=== PATIENT | male | born 1995 | race Caucasian/White ===

== ENCOUNTER 2021-03-01 18:33 | Emergency (ER) | payer BC ==
[~2021-03-01] VITALS: Ht 188 cm; Wt 108.9 kg
[2021-03-01] MEDS ORDERED: ADDERALL 20 MG20 MG PO (18:49)
[2021-03-01 20:31] VITALS: BP 120/80
== END 2021-03-01 20:27 | disposition home or self-care (01) ==
LOC: M.ERS 18:33
DX: M79.641 Pain in right hand (principal); R11.0 Nausea; Z79.899 Other long term (current) drug therapy; W22.8XXA Striking against or struck by other objects, initial encounter; Y93.89 Activity, other specified; Y92.89 Other specified places as the place of occurrence of the external cause; Y99.8 Other external cause status